=== PATIENT | female | born 1950 | race Caucasian/White ===

== ENCOUNTER 2016-11-17 10:29 | Inpatient (IN) | payer OTHER ==
[~2016-11-17] VITALS: Ht 154.9 cm; Wt 72.8 kg
[2016-11-17 10:40] VITALS: Ht 154.9 cm; Wt 72.8 kg
[2016-11-17] MEDS ORDERED: LIDOCAINE HCL 2% VISC SOLN 20 ML UDC PO STA (11:16)
[2016-11-17] MEDS ORDERED: ALUMINUM/MAGNESIUM SUSP 30 ML UDC PO STA (11:16)
--- NOTE | 2016-11-17 11:23 | DIAGNOSTIC IMAGING REPORT ---
CHEST ONE VIEW PORTABLE CLINICAL HISTORY: Evaluate Fever/Sepsis cough COMPARISON STUDY: No previous studies for comparison. FINDINGS: The bones soft tissues and hemidiaphragms are normal. The cardiomediastinal silhouette is normal. The lungs are clear. The pulmonary vasculature is normal. IMPRESSION: Negative chest. Electronically signed by: Maurice Bo M.D. 11/17/2016 11:22 AM Dictated Date/Time: 11/17/2016 11:21 AM
[2016-11-17 11:30] LABS: BASO % 0.3 %; BASO ABS # 0.02 K/uL (0-0.2); COMPLETE YES; EOS % 0.4 %; HEMATOCRIT 40.6 % (37-47); IG% 0.3 %; LYMPH % 19.6 %; LYMPH ABS # 1.41 K/uL (1.2-3.4); MEAN CELL VOLUME 91.9 fL (80-100); MEAN CORPUSCULAR HEMOGLOBIN 30.5 pg (25-34); MEAN CORPUSCULAR HGB CONC 33.3 g/dl (32-36); MEAN PLATELET VOLUME 9.5 fL (7.4-10.4); MONO % 3.5 %; NEUT % 75.9 %; PLATELET COUNT 218 K/uL (130-400); RED BLOOD COUNT 4.42 M/uL (4.2-5.4); WHITE BLOOD COUNT 7.19 K/uL (4.8-10.8)
[2016-11-17 11:37] LABS: PROTHROMBIN TIME (PATIENT) 10.8 SECONDS (9.0-12.0)
[2016-11-17 11:54] LABS: ALT/SGPT 26 U/L (12-78); AST/SGOT 16 U/L (15-37); BLOOD UREA NITROGEN 14 mg/dl (7-18); BUN/CREATININE RATIO 17.1 (10-20); CALCIUM 8.8 mg/dl (8.5-10.1); CARBON DIOXIDE 28 mmol/L (21-32); CHLORIDE 103 mmol/L (98-107); CREATININE 0.82 mg/dl (0.60-1.20); GLUCOSE 110 mg/dl (70-99); POTASSIUM 3.6 mmol/L (3.5-5.1); SODIUM 141 mmol/L (136-145)
[2016-11-17] MEDS ORDERED: PRLSR20 PO (11:58)
[2016-11-17] MEDS ORDERED: DICL-201 PO (11:58)
[2016-11-17] MEDS ORDERED: FLUT0.15 PO (11:58)
[2016-11-17] MEDS ORDERED: HYZ/10015 PO (11:58)
[2016-11-17] MEDS ORDERED: ATEN25TA PO (11:58)
[2016-11-17 12:24] LABS: ALKALINE PHOSPHATASE 53 U/L (45-117); CKMB/CK RATIO 5.6 (0-3.0)
[2016-11-17] MEDS ORDERED: ASPIRIN 324 MG CHEW PO STA (12:27)
[2016-11-17] MEDS ORDERED: NITROGLYCERIN 0.4 MG SL PER TAB CHARGE SL STA (12:27)
[2016-11-17] MEDS ORDERED: NITROGLYCERIN OINT 2% 1GM PACKET EXT SCH (12:30)
[2016-11-17] MEDS ORDERED: NITROGLYCERIN OINT 2% 1GM PACKET ONE (12:51)
[2016-11-17] MEDS ORDERED: HEPARIN 25000 UNIT/500 ML D5W ONE (13:07)
[2016-11-17] MEDS ORDERED: HEPARIN SOD 5000 UNIT/0.5 ML CARP ONE (13:07)
[2016-11-17] MEDS ORDERED: OPTIRAY 320 IV PRN (13:30)
--- NOTE | 2016-11-17 13:44 | DIAGNOSTIC IMAGING REPORT ---
HEAD CT NONCONTRAST CT DOSE: HISTORY: Mental status change memory disturbance TECHNIQUE: Multiaxial CT images of the head were performed without the use of intravenous contrast. Comparison: None. Findings: The paranasal sinuses and mastoid air cells are clear. The calvarium and skull base are intact. The ventricles and sulci are within normal limits. There is no mass, hematoma, midline shift, or acute infarct. Impression: No acute intracranial abnormality. Electronically signed by: Maurice oB M.D. 11/17/2016 1:42 PM Dictated Date/Time: 11/17/2016 1:42 PM
--- NOTE | 2016-11-17 13:49 | DIAGNOSTIC IMAGING REPORT ---
CT chest angiogram HISTORY:. Chest pain. Elevated troponin. FINDINGS: Thoracic aorta is normal in course and caliber. There is no evidence for aneurysm or dissection. Lungs are clear. Pulmonary vasculature enhances appropriately. IMPRESSION: Negative study Electronically signed by: Maurice Bo M.D. 11/17/2016 1:48 PM Dictated Date/Time: 11/17/2016 1:47 PM
[2016-11-17] MEDS ORDERED: ONDANSETRON INJ 2 MG/ML 2 ML VIAL IV PRN (14:00)
[2016-11-17] MEDS ORDERED: NITROGLYCERIN 0.4 MG SL PER TAB CHARGE SL PRN (14:00)
--- NOTE | 2016-11-17 14:06 | EMERGENCY ROOM VISIT NOTE ---
History Report prepared by Nasir: Nahid Osman Under the Supervision of: Dr. Reynaldo Damon D.O. First contact with patient: 10:40 Chief Complaint: CHEST PAIN Stated Complaint: CHEST PAINS Nursing Triage Summary: Patient c/o mid chest pain that started around 0515 this am and radiated into her left and right arms. Patient describes it as a burning sensation, denies any shortness of breath or diaphoresis. Patient also denies any nausea. Patient denies cardiac history. 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 She describes her pain as "pressure" and notes it rates down to her left arm and left elbow. She notes her pain has been somewhat better since being in the ER. She took some antacid and omeprazole this morning with minor relief of her symptoms. She thinks this is an acid attack though it feels different, and she is worried about a heart attack. The patient denies having any fever, chills, diaphoresis, or shortness of breath. She notes having a history of hypertension , and did take her blood pressure medication this morning. 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 A total of 10 systems reviewed and were otherwise negative. Past Medical & Surgical Medical Problems: (1) Chest pain (2) History of gastroesophageal reflux (GERD) (3) History of hypertension (4) Hypertensive urgency Family History Hypertension Social History Smoking Status: Never Smoker Current/Historical Medications Scheduled Atenolol (Tenormin), 25 MG PO HS Diclofenac (Voltaren), 75 MG PO HS Fluticasone Propionate (Nasal) (Flonase Allergy Relief), 1-2 SPRAYS PO DAILY Hctz/Losartan (Hyzaar 25MG/100MG), 1 TAB PO QAM Omeprazole (Prilosec), 20 MG PO DAILY Allergies Coded Allergies: Lisinopril (Verified Adverse Reaction, Intermediate, cough, 11/17/16) Physical Exam Vital Signs Date Time Temp Pulse Resp B/P Pulse Ox O2 Delivery O2 Flow Rate FiO2 11/17/16 13:57 74 16 155/89 96 Room Air 11/17/16 12:57 73 20 177/88 97 Room Air 11/17/16 11:04 99 Room Air 11/17/16 10:50 64 11/17/16 10:46 99 Room Air 11/17/16 10:40 99 Room Air 11/17/16 10:40 36.6 72 18 201/109 100 Room Air Physical Exam CONSTITUTIONAL/VITAL SIGNS: Reviewed / noted above. GENERAL: Non-toxic in appearance. INTEGUMENTARY: Warm, dry, and [place]. HEAD: Normocephalic. EYES: without scleral icterus or trauma. ENT/OROPHARYNX: clear and moist. LYMPHADENOPATHY/NECK: Is supple without lymphadenopathy or meningismus. RESPIRATORY: Lungs clear and equal. CARDIOVASCULAR: Regular rate and rhythm. GI/ABDOMEN: Soft and nontender. No organomegaly or pulsatile mass. No rebound or guarding. Normal bowel sounds. EXTREMITIES: Warm and well perfused. BACK: No CVA tenderness. NEUROLOGICAL: Intact without focal deficits. PSYCHIATRIC: normal affect. MUSCULOSKELETAL: Normally developed with good muscle tone. Medical Decision & Procedures ER Provider Diagnostic Interpretation: X ray results and stated below per my interpretation and radiology interpretation. CHEST ONE VIEW PORTABLE FINDINGS: The bones soft tissues and hemidiaphragms are normal. The cardiomediastinal silhouette is normal. The lungs are clear. The pulmonary vasculature is normal. IMPRESSION: Negative chest. Electronically signed by: Maurice Bo M.D. 11/17/2016 11:22 AM Dictated Date/Time: 11/17/2016 11:21 AM Laboratory Results 11/17/16 11:15 Red Blood Count 4.42, Mean Corpuscular Volume 91.9, Mean Corpuscular Hemoglobin 30.5, Mean Corpuscular Hemoglobin Concent 33.3, Mean Platelet Volume 9.5, Neutrophils (%) (Auto) 75.9, Lymphocytes (%) (Auto) 19.6, Monocytes (%) (Auto) 3.5, Eosinophils (%) (Auto) 0.4, Basophils (%) (Auto) 0.3, Neutrophils # (Auto) 5.46, Lymphocytes # (Auto) 1.41, Monocytes # (Auto) 0.25, Eosinophils # (Auto) 0.03, Basophils # (Auto) 0.02 2/5/17 11:15 Test 11/17/16 11:15 White Blood Count 7.19 K/uL (4.8-10.8) Red Blood Count 4.42 M/uL (4.2-5.4) Hemoglobin 13.5 g/dL (12.0-16.0) Hematocrit 40.6 % (37-47) Mean Corpuscular Volume 91.9 fL (80-100) Mean Corpuscular Hemoglobin 30.5 pg (25-34) Mean Corpuscular Hemoglobin Concent 33.3 g/dl (32-36) Platelet Count 218 K/uL (130-400) Mean Platelet Volume 9.5 fL (7.4-10.4) Neutrophils (%) (Auto) 75.9 % Lymphocytes (%) (Auto) 19.6 % Monocytes (%) (Auto) 3.5 % Eosinophils (%) (Auto) 0.4 % Basophils (%) (Auto) 0.3 % Neutrophils # (Auto) 5.46 K/uL (1.4-6.5) Lymphocytes # (Auto) 1.41 K/uL (1.2-3.4) Monocytes # (Auto) 0.25 K/uL (0.11-0.59) Eosinophils # (Auto) 0.03 K/uL (0-0.5) Basophils # (Auto) 0.02 K/uL (0-0.2) RDW Standard Deviation 44.0 fL (36.4-46.3) RDW Coefficient of Variation 13.0 % (11.5-14.5) Immature Granulocyte % (Auto) 0.3 % Immature Granulocyte # (Auto) 0.02 K/uL (0.00-0.02) Prothrombin Time 10.8 SECONDS (9.0-12.0) Prothromb Time International Ratio 1.0 (0.9-1.1) Activated Partial Thromboplast Time 25.2 SECONDS (21.0-31.0) Partial Thromboplastin Ratio 1.0 Anion Gap 10.0 mmol/L (3-11) Est Creatinine Clear Calc Drug Dose 59.1 ml/min Estimated GFR () 87.0 Estimated GFR (Non- 75.1 BUN/Creatinine Ratio 17.1 (10-20) Calcium Level 8.8 mg/dl (8.5-10.1) Total Bilirubin 0.3 mg/dl (0.2-1) Direct Bilirubin < 0.1 mg/dl (0-0.2) Aspartate Amino Transf (AST/SGOT) 16 U/L (15-37) Alanine Aminotransferase (ALT/SGPT) 26 U/L (12-78) Alkaline Phosphatase 53 U/L (45-117) Total Creatine Kinase 134 U/L (26-192) Creatine Kinase MB 7.5 ng/ml (0.5-3.6) Creatine Kinase MB Ratio 5.6 (0-3.0) Troponin I 0.329 ng/ml (0-0.045) Total Protein 7.4 gm/dl (6.4-8.2) Albumin 3.8 gm/dl (3.4-5.0) Lipase 265 U/L (73-393) Laboratory results as stated above per my review. Medications Administered Medications (Trade) Dose Ordered Sig/Alexander Route Start Time Stop Time Status Last Admin Dose Admin Al Hydroxide/Mg Hydroxide (Maalox Susp) 30 ml NOW STAT PO 11/17/16 11:16 11/17/16 11:17 DC 11/17/16 11:33 30 ML Lidocaine HCl (Viscous Lidocaine 2% Soln) 10 ml NOW STAT PO 11/17/16 11:16 11/17/16 11:17 DC 11/17/16 11:32 10 ML Aspirin (Aspirin Chew) 324 mg NOW STAT PO 11/17/16 12:27 11/17/16 12:31 DC 11/17/16 13:00 324 MG Nitroglycerin (Nitroglycerin 2% Oint) 1 inch Q6H EXT 11/17/16 12:30 12/17/16 12:29 11/17/16 12:30 1 INCH Heparin Sodium/ Dextrose (Heparin 25,000 Unit/500ml D5W) 25,000 unit STK-MED ONCE .ROUTE 11/17/16 13:07 11/17/16 13:09 DC 11/17/16 13:52 25,000 UNIT Heparin Sodium (Porcine) (Heparin Sq 5000 Unit/0.5ml) 5,000 unit STK-MED ONCE .ROUTE 11/17/16 13:07 11/17/16 13:09 DC 11/17/16 13:51 5,000 UNIT ECG Indication: chest pain Rate (beats per minute): 66 Rhythm: normal sinus Findings: no acute ischemic change, no ectopy ED Course 1116: Ordered Lidocaine HCl 10 ml PO, and Maalox Susp 30 ml PO. 1220: Previous medical records were reviewed. The patient was evaluated in room B11B. A complete history and physical examination was performed. 1227: Ordered Nitroglycerin 0.4 mg SL, Heparin Sodium/Dextrose 1 ea N/A, and Aspirin 324 mg PO. 1230: Ordered Nitroglycerin 1 inch EXT. 1238: Discussed the patient's case with Dr. Carpenter. The patient will be evaluated for further treatment and disposition. 1250: Discussed the patient's case with Dr. Burrell. He recommended ordering an echocardiogram. Medical Decision Differential includes viral illness, influenza, streptococcal pharyngitis, meningitis, pneumonia, sinusitis, UTI, pyelonephritis, otitis media. This is a 66-year-old female who presents to the ED with a chief complaint of chest discomfort. The patient reports having onset of chest discomfort that she describes as a pressure burning with an onset around 5:30 this morning. She states that it went to her left arm to the level of the elbow. The patient denies any shortness of breath or cough. Denies any other significant symptoms. There is no significant family history of cardiac disease. She does not have high cholesterol. She is a nonsmoker. Initial vital signs reveal hypertension. This improved some during her stay. The patient's EKG shows a normal sinus rhythm at a rate of 66 without acute injury. Chest x-ray did not show any acute disease. Complete metabolic panel was unremarkable. Troponin slightly elevated. The patient was told the results of the test. She'll be seen by the hospitalist service. While waiting to be seen, the patient developed amnesia with regards to why she was here. She is otherwise neurologically intact without deficit. Her blood pressure was down to 177 systolic and then 160 systolic. The symptoms started about 10 minutes after getting Nitropaste to the anterior chest. A CT scan of the head without contrast did not show any abnormality. CT scan of the chest to rule out dissection was also treated. The patient was treated with IV heparin as well as by mouth aspirin. She was also given Nitropaste. She'll be seen by the hospitalist service. Consults Time Called: 1238 Consulting Physician: Dr. Carpenter Returned Call: [phone] Discussed the patient's case with Dr. Carpenter. The patient will be evaluated for further treatment and disposition. Additional Consults: Time Called: 1245 Consulted Physician: Dr. Burrell, Cardiology Returned Call: 1250 Additional Comments: Discussed the patient's case with Dr. Burrell. He recommended ordering an echocardiogram. Impression Primary Impression: NSTEMI (non-ST elevated myocardial infarction) Additional Impression: Hypertensive urgency Scribe Attestation The scribe's documentation has been prepared under my direction and personally reviewed by me in its entirety. I confirm that the note above accurately reflects all work, treatment, procedures, and medical decision making performed by me. Departure Information Dispostion Being Evaluated By Hospitalist Referrals Yeny Garcia M.D. (PCP) Patient Instructions My [facility] Problem Qualifiers
[2016-11-17] MEDS ORDERED: IV FLUIDS COMPLETED PRN (14:45)
[2016-11-17 15:11] VITALS: BP 155/85; PULSE 67; TEMP 36.8; O2SAT 97; BMI 30.1
--- NOTE | 2016-11-17 15:14 | HISTORY & PHYSICAL EXAMINATION ---
DATE OF ADMISSION: 11/17/2016 PRIMARY CARE PHYSICIAN: Dr. Garcia CHIEF COMPLAINT: Waxing and waning chest pain beginning at around 6 hours prior to coming to the hospital. HISTORY OF PRESENT COMPLAINT: She is a 66-year-old white female with significant past medical history including hypertension, esophageal reflux, hyperlipidemia, and also generalized osteoarthritis, apparently was brought into the Emergency Room at around 10:40 this morning with complaints of waxing and waning chest pain, 6 hours before coming to the Emergency Room. The initial history was taken by the ER physician. At that time, the patient complained to have pressure in the center of the chest and sometimes pain has been going down to the left arm and left elbow. She was feeling a little better in the Emergency Room and she was worried about having a heart attack as well. She was noted to have a very high blood pressure of systolic of more than 200 and diastolic 109. At that point, she was given nitro paste to control the blood pressure and chest pain. Following that, the patient had an episode of confusion and during my time of taking history, she was not able to give any account of her problem. She told me that she cannot remember anything and she was asking why she is here, what is happening with her, these kind of questions, but she was not in any distress. She underwent a CTA to rule out any dissection and or clot and also CT of the head which were unremarkable. Her EKG unremarkable. Troponin was slightly elevated to 0.33 and her blood pressure came down to 150 range, but given her chest pain episode and also an episode of confusion and high blood pressure, she was admitted to the telemetry unit for continuation of medical care. PAST MEDICAL HISTORY: Significant for hypertension, hyperlipidemia, esophageal reflux, osteoarthritis, and history of impaired glucose tolerance. PAST SURGICAL HISTORY: Hysterectomy in 1998 and she did have upper and lower endoscopies. FAMILY HISTORY: She is . Her brother has prostate cancer and father had prostate cancer and mother had pancreatic cancer. SOCIAL HISTORY: She is . She lives with her . She does not smoke and does not drink and she has been reasonably ambulant. ALLERGIES: LISINOPRIL. MEDICATIONS: She has been on diclofenac 75 mg at night, atenolol 25 mg at night, Flonase nasal spray 2 sprays in each nostril as directed, Hyzaar 25 mg daily, omeprazole 20 mg daily. REVIEW OF SYSTEMS: CENTRAL NERVOUS SYSTEM: No headache, no blurred vision, no numbness or tingling in the extremities. RESPIRATORY: No shortness of breath, no cough or phlegm. CARDIOVASCULAR: Did have some central chest pain with radiation to left arm and elbow. No palpitation. GASTROINTESTINAL: No abdominal pain, distention, nausea, vomiting. GENITOURINARY: No problem with urine and/or bowel habit. MUSCULOSKELETAL: No acute arthritis. GENERAL: No rash and she does not have any complaint with vision, ear problem or nose problem. PHYSICAL EXAMINATION: GENERAL: On examination in the Emergency Room, as mentioned in history of present complaint, she could not remember why was she in the Emergency Room, but she was not having any acute distress during my examination. VITAL SIGNS: Temperature 36.6, pulse of 73, blood pressure 177/88, saturation 97% on room air. HEENT: Unremarkable. NECK: Supple. No JVD, no bruit. CHEST: Clear to auscultate bilaterally. HEART: S1, S2 regular, no murmur. ABDOMEN: Soft, benign, nontender, no organomegaly. Bowel sounds present. EXTREMITIES: Negative for any Edema. MUSCULOSKELETAL SYSTEM: Did not show any acute arthritis involving any joint. CENTRAL NERVOUS SYSTEM: She was alert, awake. She was not oriented but no focal sensory and/or motor deficit appreciated. LABORATORY DATA: Noted today white count was 7.19, H\T\H 13.5/40.6 and platelet was 218. Sodium 141, potassium 3.6, chloride 103, carbon dioxide 28, BUN 14, creatinine 0.82, random glucose 110. LFTs unremarkable. CK was 134, MB 7.5. Troponin 0.329. Lipase of 265. PT/INR unremarkable. IMAGING DATA: Chest x-ray negative. CT of the head negative. CTA still pending. EKG was in sinus rhythm with sinus arrhythmia, partial right Bundle Branch block but no acute ST-T wave changes. Compared with EKG in the [facility], no significant change noted. IMPRESSION AND PLAN: 1. Hypertensive urgency with metabolic encephalopathy. The patient will be admitted to telemetry unit and she will be observed. Initial CAT scan negative. She does not have any neuro symptoms. We will maintain the blood pressure around systolic 150. 2. Chest pain, could be secondary to hypertensive urgency. She has a little bit of elevation of troponin. Will do serial cardiac enzymes, echo was done, no significant valvular and/or left ventricular disease. Cardiology consultation. She will be put on heparin, aspirin and beta mónica. 3. Esophageal reflux. Continue with current medication. 4. Hyperlipidemia, has not been taking any medications. Will check a lipid level and then put her on statin on discharge. 5. Osteoarthritis has been on diclofenac, will hold this medicine while in the hospital. 6. Deep venous thrombosis prophylaxis - heparin. 7. Gastrointestinal prophylaxis with proton pump inhibitor. 8. Code status - she will be a full code. In my clinical judgment, the beneficiary meets criteria as per CMS for 2-midnight stay in the hospital. MTDD
--- NOTE | 2016-11-17 15:43 | CARDIOLOGY CONSULTATION ---
DATE OF CONSULTATION: 11/17/2016 CONSULTATION REQUESTED BY: Dr. Damon. REASON FOR CONSULTATION: Chest discomfort with elevated troponin. HISTORY OF PRESENT ILLNESS: Ms. Ye is a very pleasant 66-year-old woman who was came into the Emergency Department today with her for complaint of chest discomfort. Currently, the patient is very confused and does not remember anything that is going on. 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 When shortly after she was told that she might have a heart problem, she became significantly confused and was repeating herself over and over again. So, the majority of her history was obtained through discussion with the patient's as well as the ER staff and review of medical records. According to her , the patient woke up this morning and had some which she described as indigestion. She described it as a chest discomfort that radiated up through her chest and over her left chest and down into her left shoulder and down her left arm. She did not complain of shortness of breath or diaphoresis, but just did not feel well. She took her morning medications as she usually does and went to [facility]. 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 After the service, she told her that her chest discomfort persisted. At that time, she took her Hyzaar because she will not take a water pill before amish. At that time, her brought her into the Emergency Department. Upon presentation, she was still complaining of some slight discomfort, which was not relieved with GI cocktail. She was found to have a blood pressure of 201/109 and initial laboratory studies came back showing a minimal troponin elevation of 0.3. Her EKG was unremarkable. Cardiology was consulted. An urgent echocardiogram was done at the bedside, which showed normal LV systolic function without regional wall motion abnormalities. PAST SURGICAL HISTORY: 1. Colonoscopy. 2. Upper endoscopy. MEDICAL ILLNESSES: 1. Short segment Pimentel's esophagitis. 2. Hypertension. 3. GERD. 4. Osteoarthritis. 5. History of psychogenic amnesia in 2005. FAMILY HISTORY: Noncontributory. SOCIAL HISTORY: No alcohol, tobacco or recreational drug use. She is . She lives at home with her . 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 ALLERGIES: 1. LISINOPRIL CAUSES A COUGH. 2. ULTRAM. MEDICATIONS AN OUTPATIENT: 1. Hyzaar 100/25 mg daily. 2. Atenolol 25 mg daily. 3. Prilosec 20 mg daily. 4. Trazodone at bedtime. 5. Voltaren daily. 6. Multivitamin daily. 7. Fish oil 1000 mg b.i.d. PHYSICAL EXAMINATION: VITALS: Temperature 36.6, pulse 72, respiratory rate 12, and blood pressure 155/89. GENERAL: Awake, alert, and oriented to self, but not place or time. Confused, repeating her questions. HEENT: Normocephalic and atraumatic. Pupils equal, round, and reactive to light and accommodation. Extraocular muscles intact. Anicteric sclerae. Moist mucous membranes. NECK: No JVD and no bruit. CARDIOVASCULAR: Regular. No S4. Normal S1 and S2. No S3. No murmurs, rubs or gallops. PULMONARY: Clear to auscultation bilaterally. No rales, rhonchi, or wheezing. ABDOMEN: Bowel sounds x4. Soft. No rebound, guarding, or tenderness. No organomegaly. EXTREMITIES: No clubbing, cyanosis or edema. +2 pedal pulses bilaterally. SKIN: Warm and dry. Preliminary review of the head CT showed no acute intracranial abnormalities. CT of the chest showed no dissection. A 12-lead EKG showed normal sinus rhythm, normal axis, and normal intervals. No signs of active ischemia. LABORATORY STUDIES OF SIGNIFICANCE: CPK of 134 and troponin of 0.33. Sodium 141, potassium 3.6, BUN 14, and creatinine 0.82. INR of 1. White count 7.2, hemoglobin 13.5, and platelet count of 218. IMPRESSION: 1. Hypertensive urgency. 2. Questionable psychogenic amnesia versus transient global amnesia. 3. Minimal troponin elevation. RECOMMENDATIONS: It was my pleasure to see Ms. Ye in consultation today. Given her presentation, I believe the entirety of her symptoms could be explained by hypertensive urgency, especially in light of a normal EKG and no wall motion abnormalities on echocardiogram. So at this time, to be on the safe side, we will start heparin given the fact that there is no bleed in the brain and her troponin levels will be followed. Her blood pressure is significantly improving and when she settled down, I recommend trying to maintain a blood pressure of less than 160 and amlodipine to be given as needed to further lower the pressure. Otherwise, I would recommend a neurology consult and we will continue to follow her during her hospital stay. The patient's was updated on the findings of these studies.
[2016-11-17 16:00] VITALS: BP 155/83; PULSE 67; O2SAT 94; O2SAT 99
[2016-11-17] MEDS ORDERED: INFLUENZA ADMINISTRATION CHARGE ONE (16:30)
[2016-11-17] MEDS ORDERED: PNEUMOCOCCAL ADMINISTRATION CHARGE ONE (16:30)
[2016-11-17] MEDS ORDERED: PNEUMOCOCCAL POLYSACCHARIDES 25 MCG/0.5 ML VIAL/SYR IM. ONE (16:30)
[2016-11-17] MEDS ORDERED: INFLUENZA VIRUS QUAD VACCINE 0.5 ML SYR IM. ONE (16:30)
[2016-11-17 18:27] VITALS: BP 129/77; PULSE 75; TEMP 36.7; O2SAT 95
[2016-11-17] MEDS: NSS + 20MEQ KCL 1000ML 1,000 ML IV SCH (19:00)
[2016-11-17] MEDS: ACETAMINOPHEN 325 MG TAB PO PRN (19:32)
[2016-11-17] MEDS ORDERED: HEPARIN IV LOW DOSE NO BOLUS STA (21:40)
[2016-11-17] MEDS ORDERED: HEPARIN IV BOLUS 4,000 UNIT in SYRINGE 0 ML IV ONE (22:15)
[2016-11-18] VITALS (7 sets, daily range): BP systolic 119–160; BP diastolic 69–92; PULSE 62–68; TEMP 36.6–36.9; O2SAT 93–97
[2016-11-18 03:00] LABS: CKMB/CK RATIO 6.9 (0-3.0)
[2016-11-18 05:16] LABS: PARTIAL THROMBOPLASTIN RATIO 1.3
[2016-11-18] MEDS: NSS + 20MEQ KCL 1000ML 1,000 ML IV SCH ×2 (06:06→20:06)
[2016-11-18 06:37] LABS: HEMATOCRIT 38.9 % (37-47); MEAN CELL VOLUME 90.9 fL (80-100); MEAN CORPUSCULAR HEMOGLOBIN 30.1 pg (25-34); MEAN CORPUSCULAR HGB CONC 33.2 g/dl (32-36); MEAN PLATELET VOLUME 9.6 fL (7.4-10.4); PLATELET COUNT 211 K/uL (130-400); RED BLOOD COUNT 4.28 M/uL (4.2-5.4); WHITE BLOOD COUNT 5.62 K/uL (4.8-10.8)
[2016-11-18] MEDS ORDERED: HEPARIN IV BOLUS 4,000 UNIT in SYRINGE 0 ML IV ONE ×2 (06:45→13:30)
[2016-11-18 07:05] LABS: BUN/CREATININE RATIO 12.5 (10-20); CALCIUM 8.5 mg/dl (8.5-10.1); CREATININE 0.77 mg/dl (0.60-1.20); MAGNESIUM 2.2 mg/dl (1.8-2.4)
[2016-11-18 07:16] LABS: CHOLESTEROL/HDL RATIO 3.1; CKMB/CK RATIO 6.2 (0-3.0)
[2016-11-18] MEDS: FLUTICASONE PROPIONATE NA SPR 16 GM BTL SCH (08:07)
[2016-11-18] MEDS: PANTOprazole SOD 40 MG TAB PO SCH (08:08)
[2016-11-18] MEDS: ASPIRIN 81 MG ECTAB PO SCH (08:08)
[2016-11-18] MEDS: LOSARTAN/HCTZ 50-12.5 EA TAB PO SCH (08:08)
--- NOTE | 2016-11-18 08:45 | ECHOCARDIOGRAM REPORT ---
*NOTICE TO RECEIVING [facility] [employer] This information is strictly Confidential and protected under [place] law. [place] law prohibits you from making any further disclosure of this information unless further disclosure is expressly permitted by the written consent of the person to whom it pertains or is authorized by law. A general authorization for the release of medical or other information is not sufficient for this purpose. Hospital accepts no responsibility if the information is made available to any other person, INCLUDING THE PATIENT. Interpretation Summary * Conclusions -- * Normal LV chamber size and wall thickness. * Normal LV systolic function, EF 60-65%. * No segmental left ventricular wall motion abnormalities are noted. * Grade I diastolic dysfunction. * No significant valvular pathology. Procedure Details * A complete two-dimensional transthoracic echocardiogram was performed (2D, M-mode, Doppler and color flow Doppler). * A contrast injection of Definity was performed to improve assessment of LV function. * Contrast was injected into an intravenous site in the right arm. * One vial of Definity ultrasound contrast was diluted in normal saline to a total volume of 10 ml. A total of '2' ml of solution was administered during imaging. * Lot # [id number] of Definity utilized for procedure. * Expiration date OCT 30. * The attending nurse who injected the contrast agent was YASMANI TABOR ED, RN. Left Ventricle * The left ventricle is normal in size. * There is normal left ventricular wall thickness. * Left ventricular systolic function is normal. * No segmental left ventricular wall motion abnormalities are noted. * Ejection Fraction = 60-65%. * The left ventricular wall motion is normal. Right Ventricle * The right ventricular cavity size is normal (basal dimension <4.2 cm in right ventricular apical 4-chamber view). * The right ventricular systolic function is normal as assessed by tricuspid annular plane systolic excursion (TAPSE) (normal >1.5 cm). Atria * The left atrial size is normal. * Right atrial size is normal. * No ASD detected; PFO is not assessed. Mitral Valve * The mitral valve is normal in structure and function. Tricuspid Valve * The tricuspid valve is normal in structure and function. Aortic Valve * The aortic valve is normal in structure and function. Pulmonic Valve * The pulmonary valve is not well seen, but the Doppler examination is normal without significant regurgitation or stenosis. Great Vessels * The aortic root is normal size. Pericardium/Pleural * There is no pericardial effusion. Left Ventricular Diastolic Function * Grade I diastolic dysfunction, (abnormal relaxation pattern). MMode 2D Measurements and Calculations IVSd 0.98 cm IVSs 1.7 cm LVIDd 4.6 cm LVIDs 3.0 cm LVPWd 0.91 cm LVPWs 1.1 cm IVS/LVPW 1.1 FS 34.4 % EDV(Teich) 96.9 ml ESV(Teich) 35.4 ml EF(Teich) 63.5 % EDV(cubed) 96.8 ml ESV(cubed) 27.4 ml EF(cubed) 71.7 % % IVS thick 74.9 % % LVPW thick 21.5 % LV mass(C)d 145.8 grams LV mass(C)dI 87.4 grams/m\S\2 LV mass(C)s 141.9 grams LV mass(C)sI 85.1 grams/m\S\2 SV(Teich) 61.5 ml SI(Teich) 36.9 ml/m\S\2 SV(cubed) 69.5 ml SI(cubed) 41.6 ml/m\S\2 Ao root diam 3.4 cm Ao root area 9.0 cm\S\2 LA dimension 3.1 cm LA/Ao 0.92 LVOT diam 2.0 cm LVOT area 3.1 cm\S\2 LVAd ap4 28.9 cm\S\2 LVLd ap4 7.4 cm EDV(MOD-sp4) 93.4 ml EDV(sp4-el) 95.8 ml LVAs ap4 17.2 cm\S\2 LVLs ap4 6.2 cm ESV(MOD-sp4) 39.3 ml ESV(sp4-el) 40.7 ml EF(MOD-sp4) 58.0 % EF(sp4-el) 57.6 % LVAd ap2 26.8 cm\S\2 LVLd ap2 6.9 cm EDV(MOD-sp2) 85.7 ml EDV(sp2-el) 88.5 ml LVAs ap2 12.8 cm\S\2 LVLs ap2 5.0 cm ESV(MOD-sp2) 28.9 ml ESV(sp2-el) 27.8 ml EF(MOD-sp2) 66.3 % EF(sp2-el) 68.5 % LVLd %diff -7.13 % EDV(MOD-bp) 92.3 ml LVLs %diff -23.21 % ESV(MOD-bp) 36.9 ml EF(MOD-bp) 60.1 % SV(MOD-sp4) 54.2 ml SI(MOD-sp4) 32.5 ml/m\S\2 SV(MOD-sp2) 56.8 ml SI(MOD-sp2) 34.1 ml/m\S\2 SV(MOD-bp) 55.4 ml SI(MOD-bp) 33.2 ml/m\S\2 SV(sp4-el) 55.1 ml SI(sp4-el) 33.1 ml/m\S\2 SV(sp2-el) 60.7 ml SI(sp2-el) 36.4 ml/m\S\2 Doppler Measurements and Calculations MV E max tricia 76.2 cm/sec MV A max tricia 90.2 cm/sec MV E/A 0.84 MV P1/2t max tricia 85.3 cm/sec MV P1/2t 92.8 msec MVA(P1/2t) 2.4 cm\S\2 MV dec slope 269.2 cm/sec\S\2 MV dec time 0.24 sec Ao V2 max 143.7 cm/sec Ao max PG 8.3 mmHg Ao max PG (full) 2.0 mmHg KEVAN(V,A) 2.7 cm\S\2 KEVAN(V,D) 2.7 cm\S\2 LV V1 max PG 6.3 mmHg LV V1 max 125.1 cm/sec PA V2 max 100.4 cm/sec PA max PG 4.0 mmHg TR max tricia 286.4 cm/sec
--- NOTE | 2016-11-18 10:24 | Clinical Documentation Query ---
Dr. JAVIER [facility] : CLINICAL DOCUMENTATION QUERY Patient is a 66 year old female who presented with waxing and waning chest pain/pressure, radiating to left arm. Serum troponin 0.329 ng/ml on admission, rising to 6.22 ng/ml with elevated CK, CK-MB, and CK-MB ratios. She is being treated with ASA, IV Heparin, atenolol, and nitrates. As appropriate, consider documentation as below as this In your clinical opinion is this patient being managed for: ( + ) Type II NSTEMI, POA, secondary to hypertensive urgency ( ) Other explanation of clinical findings (Please Explain) ( ) Unable to determine (Please Define) ( ) Need to Discuss ( ) Not Agree The medical record reflects the following clinical findings, treatment, and risk factors. Clinical Indicators: As above Treatment: Nitrates, ASA, IV heparin, cardiology consultation. Risk Factors: Age, hypertensive urgency The task force included representatives of the [place] [employer], the [place] [employer], the Society of Cardiology, the World Health Organization, and the World Heart Federation. This membership was designed to broaden worldwide representation; the last revision of the [place] definition, in 1999, was criticized because it came from a group that represented only the ACC and the ESC, said Dr. Vasques, a [place]apanese professor and cardiology at [employer] [facility]. The five types of acute [place] compose five separate situations that produce myocardial ischemia and myocardial-cell : 1. A primary coronary event, such as plaque rupture or dissection. 2. A problem of oxygen supply and demand, such as coronary spasm, coronary embolism, arrhythmia, anemia, or hypo/hypertension. 3. Sudden cardiac that includes signs and symptoms of myocardial ischemia, such as ECG changes, but which produces before a blood sample can be obtained or when occurs during the lag period before serum markers appear in the blood. 4. Percutaneous coronary intervention. 5. Coronary artery bypass grafting. Please clarify and document your clinical opinion in the progress notes and discharge summary. Terms such as "probable", "suspected", "likely", "questionable", "possible", or "still to be ruled out" are acceptable. IF IN AGREEMENT, YOU MUST DOCUMENT ABOVE DIAGNOSTIC STATEMENT IN DAILY PROGRESS NOTES AND DISCHARGE SUMMARY. This document is not part of the patient's record. Thank You, Nahid Dacosta, VANE [phone]
--- NOTE | 2016-11-18 10:37 | Cardiology Follow-Up ---
Subjective Subjective Date of Service: Nov 18, 2016. Pt evaluation today including: conversation w/ patient, physical exam, chart review, lab review, review of studies, review of inpatient medication list Additional Details: Pt seen and examined, back to baseline mentally now. Still does not remember the events of yesterday. Does not remember chest discomfort. Currently without complaint. Denies cp, sob, palpitations, lightheadedness or dizziness. Tele reviewed: sinus rhythm without arrhythmia or significant ectopy. Problem List Medical Problems: (1) NSTEMI (non-ST elevated myocardial infarction) Status: Acute Review of Systems Respiratory: No cough, No dyspnea at rest, No dyspnea on exertion, No hemoptysis, No problem reported, No see HPI, No shortness of breath, No sputum, No wheezing Cardiac: + chest pain, No PND, No claudication, No edema, No orthopnea, No palpitations, No problem reported, No see HPI Objective Vital Signs Last Vital Signs Documentation Date Time Temp Pulse Resp B/P Pulse Ox O2 Delivery O2 Flow Rate FiO2 11/18/16 07:34 36.6 67 16 134/83 93 Room Air Physical Exam: General Appearance: WD/WN, no apparent distress Eyes: bilateral eyes EOMI, bilateral eyes PERRL, bilateral eyes normal inspection ENT: normal ENT inspection, hearing grossly normal, pharynx normal Neck: supple, no adenopathy, thyroid normal, no JVD, no carotid bruits, trachea midline Respiratory/Chest: chest non-tender, lungs clear, normal breath sounds, no respiratory distress, no accessory muscle use Cardiovascular: regular rate, rhythm, no edema, no gallop, no JVD, no murmur Abdomen: normal bowel sounds, non tender, soft, no organomegaly, no pulsatile mass Extremities: normal range of motion, non-tender, normal inspection, no pedal edema, no calf tenderness 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 troponin elevation no other sign of active ischemia no wall motion abnormality on echo no ischemic EKG changes ?secondary to hypertensive urgency will proceed with cardiac cath on 11/19 to rule out ischemia as a cause patient agrees with plan 2. Hypertension controlled now unclear why significantly elevated on 11/17 will perform secondary work up plasma metanephrines renal artery ultrasound cont outpatient meds cont to monitor on tele
[2016-11-18 12:59] LABS: PARTIAL THROMBOPLASTIN RATIO 1.4
[2016-11-18] MEDS: HEPARIN 25,000 UNIT/500ML D5W 500 ML IV PRN ×2 (13:15→22:41)
[2016-11-18 14:49] LABS: CKMB/CK RATIO 4.9 (0-3.0)
--- NOTE | 2016-11-18 15:28 | DIAGNOSTIC IMAGING REPORT ---
DOPPLER ULTRASOUND OF THE RENAL ARTERIES CLINICAL HISTORY: Hypertension. COMPARISON STUDY: No previous studies for comparison. TECHNIQUE: Color and duplex Doppler sonography of the abdominal aorta and renal arteries was performed. FINDINGS: The right kidney measures 10.7 cm in maximal dimension and the left measures 11.4 cm. There is no hydronephrosis. Renal echogenicity, size and cortical thickness are normal. The peak systolic velocity within the abdominal aorta was 73 cm/s. The peak systolic velocity within the proximal right renal artery was 179 cm/s. The mid right renal artery was obscured by overlying bowel gas. The peak systolic velocity within the left renal artery was 76 cm/s. Segmental waveforms within each kidney were unremarkable. Both renal veins were patent. IMPRESSION: 1. Technically nondiagnostic evaluation for right renal artery stenosis given nonvisualization of the mid right renal artery. Mildly elevated velocity within the proximal right renal artery which does not meet criteria for renal artery stenosis by sonography. No downstream evidence of renal artery stenosis. 2. No evidence of left-sided renal artery stenosis. 3. No hydronephrosis. 4. Suspected fatty liver. Electronically signed by: Sotero Myers M.D. 11/18/2016 3:27 PM Dictated Date/Time: 11/18/2016 3:22 PM
[2016-11-18] MEDS: ACETAMINOPHEN 325 MG TAB PO PRN ×2 (15:58→23:24)
--- NOTE | 2016-11-18 16:27 | Progress Note ---
Internal Med Progress Note Date of Service: Nov 18, 2016. Provider Documentation: SUBJECTIVE: The patient was seen and examined Denies any chest pain,sob and or palpitation Still can't remember the symptoms before coming to hospital Has had similar episode of amnesia 2 years ago OBJECTIVE: Vital Signs-as noted below Exam: General-No distress Eyes-normal ENT-normal Neck-supple Lungs-clear to ausucltate bilaterally Heart-regular,no murmur Abdomen-Benign,no masses,bowel sound present Extremities-No edema Neuro-AAOx3 Lab data as noted below. ASSESSMENT & PLAN: Hypertensive urgency with metabolic encephalopathy. 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 Continue with current medication. Hyperlipidemia, has not been taking any medications. Will check a lipid level-Total Cholesterol 224 Osteoarthritis has been on diclofenac, will hold this medicine while in the hospital. Deep venous thrombosis prophylaxis - heparin. Gastrointestinal prophylaxis with proton pump inhibitor. Code status - she will be a full code. DVT PROPHYLAXIS [] DISPOSITION [] Vital Signs: Date Time Temp Pulse Resp B/P Pulse Ox O2 Delivery O2 Flow Rate FiO2 11/18/16 15:45 36.9 65 18 160/92 96 Room Air 11/18/16 11:30 36.6 67 16 143/90 96 Room Air 11/18/16 08:00 Room Air 11/18/16 07:34 36.6 67 16 134/83 93 Room Air 11/18/16 04:00 Room Air 11/18/16 04:00 36.7 62 18 131/76 95 Room Air 11/18/16 00:01 Room Air 11/18/16 00:00 36.7 68 16 119/69 94 Room Air 11/17/16 20:00 Room Air 11/17/16 18:27 36.7 75 16 129/77 95 Room Air Lab Results: Results Past 24 Hours Test 11/17/16 19:40 11/18/16 01:48 11/18/16 04:39 11/18/16 06:25 Range/Units Activated Partial Thromboplast Time 27.1 34.4 21.0-31.0 SECONDS Partial Thromboplastin Ratio 1.0 1.3 Total Creatine Kinase 437 437 373 26-192 U/L Creatine Kinase MB 34.9 30.1 23.3 0.5-3.6 ng/ml Creatine Kinase MB Ratio 8.0 6.9 6.2 0-3.0 Troponin I 5.840 6.220 5.580 0-0.045 ng/ml Sodium Level 145 136-145 mmol/L Potassium Level 4.0 3.5-5.1 mmol/L Chloride Level 108 98-107 mmol/L Carbon Dioxide Level 28 21-32 mmol/L Anion Gap 9.0 3-11 mmol/L Blood Urea Nitrogen 10 7-18 mg/dl Creatinine 0.77 0.60-1.20 mg/dl Est Creatinine Clear Calc Drug Dose 66.2 ml/min Estimated GFR () 93.9 Estimated GFR (Non- 81.0 BUN/Creatinine Ratio 12.5 10-20 Random Glucose 94 70-99 mg/dl Calcium Level 8.5 8.5-10.1 mg/dl Magnesium Level 2.2 1.8-2.4 mg/dl Triglycerides Level 136 0-150 mg/dl Cholesterol Level 214 0-200 mg/dl HDL Cholesterol 70 mg/dl LDL Cholesterol, Calculated 117 mg/dl VLDL Cholesterol, Calculated 27 mg/dl Cholesterol/HDL Ratio 3.1 Thyroid Stimulating Hormone (TSH) 2.460 0.300-4.500 uIu/ml Hepatitis C Antibody Screen NEG NEG Test 11/18/16 06:28 11/18/16 12:37 11/18/16 13:52 Range/Units White Blood Count 5.62 4.8-10.8 K/uL Red Blood Count 4.28 4.2-5.4 M/uL Hemoglobin 12.9 12.0-16.0 g/dL Hematocrit 38.9 37-47 % Mean Corpuscular Volume 90.9 80-100 fL Mean Corpuscular Hemoglobin 30.1 25-34 pg Mean Corpuscular Hemoglobin Concent 33.2 32-36 g/dl RDW Standard Deviation 43.5 36.4-46.3 fL RDW Coefficient of Variation 13.2 11.5-14.5 % Platelet Count 211 130-400 K/uL Mean Platelet Volume 9.6 7.4-10.4 fL Activated Partial Thromboplast Time 36.0 21.0-31.0 SECONDS Partial Thromboplastin Ratio 1.4 Total Creatine Kinase 313 26-192 U/L Creatine Kinase MB 15.2 0.5-3.6 ng/ml Creatine Kinase MB Ratio 4.9 0-3.0 Troponin I 4.250 0-0.045 ng/ml
--- NOTE | 2016-11-18 16:55 | Neurology Consultation ---
Neurology Consultation Date of Consultation: Nov 18, 2016. Attending Physician: Latisha Carpenter M.D. Primary Care Physician: Yeny Garcia M.D. Reason for Consultation: transient global amnesia History of Present Illness Source: patient Michael is a 66-year-old white female with significant past medical history including hypertension, esophageal reflux, hyperlipidemia, and also generalized osteoarthritis, apparently was brought into the Emergency Room at around 10:40 this morning with complaints of waxing and waning chest pain for 6 hours. She was worried she had a heart attack. Her blood pressure was elevated to 200/109. She was given nitro paste to control her blood pressure. 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 She did have a headache after the event. She had a similar episode in 2005 which was not as protracted. She also mentioned that she had a concussion in 1994. she states she has no history of seizures but does have a PMH of headaches. Past Medical/Surgical History Medical Problems: (1) NSTEMI (non-ST elevated myocardial infarction) Status: Acute Allergies Coded Allergies: Lisinopril (Verified Adverse Reaction, Intermediate, cough, 11/17/16) Current Inpatient Medications Current Inpatient Medications Medications (Trade) Dose Ordered Sig/Alexander Route Start Time Stop Time Status Last Admin Dose Admin Ioversol (Optiray 320) 125 ml UD PRN IV 11/17/16 13:30 11/21/16 13:29 Acetaminophen (Tylenol Tab) 650 mg Q4H PRN PO 11/17/16 14:00 12/17/16 13:59 11/18/16 15:58 650 MG Ondansetron HCl (Zofran Inj) 4 mg Q6H PRN IV 11/17/16 14:00 12/17/16 13:59 Nitroglycerin (Nitrostat Tab) 0.4 mg UD PRN SL 11/17/16 14:00 12/17/16 13:59 Aspirin (Ecotrin Tab) 81 mg QAM PO 11/18/16 09:00 12/18/16 08:59 11/18/16 08:08 81 MG Atenolol (Tenormin Tab) 25 mg HS PO 11/17/16 21:00 3/7/17 20:59 11/17/16 19:31 25 MG Fluticasone Propionate (Flonase Nasal Tie Siding) 2 sprays DAILY NA 11/18/16 09:00 12/18/16 08:59 11/18/16 08:07 2 SPRAYS HCTZ/Losartan Potassium (Hyzaar 50-12.5 Tab) 1 tab QAM PO 11/18/16 09:00 12/18/16 08:59 11/18/16 08:08 1 TAB Pantoprazole Sodium 40 mg 40 mg QAM PO 11/18/16 09:00 12/18/16 08:59 11/18/16 08:08 40 MG Potassium Chloride/Sodium Chloride (Nss + 20meq KCl 1000ml) 1,000 ml @ 75 mls/hr [id number] IV 11/17/16 16:00 12/17/16 15:59 11/18/16 06:06 75 MLS/HR Miscellaneous 1 ea 1 ea PRN PRN N/A 11/17/16 14:45 11/17/17 14:44 Heparin Sodium/ Dextrose (Heparin 25,000 Unit/500ml D5W) 500 ml @ 20 mls/hr Q24H PRN IV 11/17/16 22:15 12/17/16 22:14 11/18/16 13:15 20 MLS/HR Physical Exam Vital Signs (Past 24 Hrs): Date Time Temp Pulse Resp B/P Pulse Ox O2 Delivery O2 Flow Rate FiO2 11/18/16 15:45 36.9 65 18 160/92 96 Room Air 11/18/16 11:30 36.6 67 16 143/90 96 Room Air 11/18/16 08:00 Room Air 11/18/16 07:34 36.6 67 16 134/83 93 Room Air 11/18/16 04:00 Room Air 11/18/16 04:00 36.7 62 18 131/76 95 Room Air 11/18/16 00:01 Room Air 11/18/16 00:00 36.7 68 16 119/69 94 Room Air 11/17/16 20:00 Room Air 11/17/16 18:27 36.7 75 16 129/77 95 Room Air Physical Exam: Constitutional: appearance nourished, healthy and normal Ears, Nose, Mouth and Throat: mucous membranes moist, no injection and skin normal, eyes normal Cardiovascular: normal S-1 and S-2 and regular rate and rhythm Respiratory: clear to auscultation (CTA) and no rales, rhonchi or wheeze Musculoskeletal: no peripheral edema and good distal pulses Skin: no stigmata of neurocutaneous disease noted and normal and intact Eyes: extraocular muscles intact (EOMI) and pupils equal, round and reactive to light (PERRL) NEUROLOGIC EXAMINATION: Mental status: Alert and interactive, knows date president, she can close eyes, stick out tongue and point to the ceiling Oriented to full date and location Oriented to person Speech fluent with no evidence of aphasia Cranial Nerves smile, eye brow raise symmetric tongue midline Reflexes: Deep tendon reflexes were symmetrical and graded 2/5. Plantar responses were flexor. Sensory: no sensory deficits, with cool or vibration, GT proprioception Coordination: finger to nose without bi pass, no tremor Gait/Stance: sitting up in bed Motor: Negative for pronator drift of out stretched arms with eyes closed. Strength: Normal - 5/5 all extremities Laboratory Results Past 24 Hours: 11/18/16 06:28 11/18/16 06:25 Test 11/18/16 06:25 11/18/16 06:28 11/18/16 12:37 11/18/16 13:52 Anion Gap 9.0 mmol/L (3-11) Est Creatinine Clear Calc Drug Dose 66.2 ml/min Estimated GFR () 93.9 Estimated GFR (Non- 81.0 BUN/Creatinine Ratio 12.5 (10-20) Calcium Level 8.5 mg/dl (8.5-10.1) Magnesium Level 2.2 mg/dl (1.8-2.4) Triglycerides Level 136 mg/dl (0-150) Cholesterol Level 214 mg/dl (0-200) HDL Cholesterol 70 mg/dl LDL Cholesterol, Calculated 117 mg/dl VLDL Cholesterol, Calculated 27 mg/dl Cholesterol/HDL Ratio 3.1 Thyroid Stimulating Hormone (TSH) 2.460 uIu/ml (0.300-4.500) Hepatitis C Antibody Screen NEG (NEG) Red Blood Count 4.28 M/uL (4.2-5.4) Mean Corpuscular Volume 90.9 fL (80-100) Mean Corpuscular Hemoglobin 30.1 pg (25-34) Mean Corpuscular Hemoglobin Concent 33.2 g/dl (32-36) RDW Standard Deviation 43.5 fL (36.4-46.3) RDW Coefficient of Variation 13.2 % (11.5-14.5) Mean Platelet Volume 9.6 fL (7.4-10.4) Activated Partial Thromboplast Time 36.0 SECONDS (21.0-31.0) Partial Thromboplastin Ratio 1.4 Total Creatine Kinase 313 U/L (26-192) Creatine Kinase MB 15.2 ng/ml (0.5-3.6) Creatine Kinase MB Ratio 4.9 (0-3.0) Troponin I 4.250 ng/ml (0-0.045) Imaging ECHO : Normal LV chamber size and wall thickness. * Normal LV systolic function, EF 60-65%. * No segmental left ventricular wall motion abnormalities are noted. * Grade I diastolic dysfunction. * No significant valvular pathology. NO ASD CT head- negative imagines no acute findings CT dissection- negative no acute findings Impression 66 year old female transient global amnesia Plan 1. cardiac work up in progress 2. can not exclude a complex migraine syndrome 3. MRI brain with and without contrast 4. EEG -r/o seizure 5. MRA head and neck - r/o any vascular issues in head and neck 6. will continue to follow 7. 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 Needs a workup for a vascular event possiblly embolic , localized posteror circulation steonsies and seizure of partail type but doubt we wll find anything of note We will follow with you Will need some form of antiplatelet rx but will wait for cardiology to complete the workup first and go with their recommendations Discussed with Shelbi Garsia MD
[2016-11-18 20:05] LABS: PARTIAL THROMBOPLASTIN RATIO 1.9
[2016-11-18] MEDS ORDERED: DOCUSATE SODIUM 100 MG CAP PO ONE (21:07)
--- NOTE | 2016-11-18 21:09 | DIAGNOSTIC IMAGING REPORT ---
MR ANGIOGRAPHY OF THE [place] OF [place] NO CONTRAST CLINICAL HISTORY: Transient global amnesia. COMPARISON STUDY: None. A 3-D [id number] MR angiographic sequence of the [place] was performed. Both the source and projection images were reviewed. There is no evidence of major intracranial branch occlusion. There is no evidence of cranial stenosis. 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 This is not felt to be of clinical significance. IMPRESSION: No significant abnormalities identified. Electronically signed by: Rao Cancino M.D. 11/18/2016 9:08 PM Dictated Date/Time: 11/18/2016 9:05 PM
--- NOTE | 2016-11-18 21:37 | DIAGNOSTIC IMAGING REPORT ---
NECK MRA HISTORY: Transient global amnesia. Suspected vascular etiology TECHNIQUE: [id number] and gadolinium-enhanced MRA of the neck was performed both before and after the intravenous administration of contrast. All measurements were calculated based on NASCET criteria. The patient was scanned before and after the administration of 20 cc of intravenous Magnevist COMPARISON STUDY: None. FINDINGS: The aortic arch and proximal great vessels are widely patent. There is no significant stenosis, occlusion, or dissection identified within the bilateral common carotid, or internal carotid arteries. There is a probable left vertebral artery origin stenosis. IMPRESSION: 1. No evidence of hemodynamically significant carotid stenosis 2. Suspected left vertebral artery origin stenosis Electronically signed by: Rao Cancino M.D. 11/18/2016 9:36 PM Dictated Date/Time: 11/18/2016 9:33 PM
--- NOTE | 2016-11-18 21:42 | DIAGNOSTIC IMAGING REPORT ---
MRI OF THE BRAIN WITHOUT AND WITH IV CONTRAST CLINICAL HISTORY: Transient global amnesia COMPARISON STUDY: No previous studies for comparison. TECHNIQUE: MRI of the brain was performed from the vertex to the skull base utilizing various T1 and T2 weighted sequences. Following the IV administration of 20 mL of Magnevist contrast, additional enhanced images were obtained. FINDINGS: Sagittal T1, axial diffusion, proton density and T2 weighted axial, coronal FLAIR, and pre and post axial T1-weighted images were acquired. These were supplemented with post gadolinium coronal T1 weighted images. No intra or extra-axial mass lesions are visualized. Axial diffusion-weighted images reveal no evidence of acute or subacute infarction. There is no evidence of ventricular dilatation. Proton density T2-weighted and FLAIR images reveal no significant intraparenchymal signal abnormalities. There are no abnormal flow voids. There is no evidence of pathologic enhancement. There are minor foci of increased T2 signal within the mastoids likely inflammatory IMPRESSION: 1. No acute intracranial findings 2. No evidence of acute or subacute infarction 3. No evidence of intracranial mass. Electronically signed by: Rao Cancino M.D. 11/18/2016 9:40 PM Dictated Date/Time: 11/18/2016 9:38 PM
[2016-11-18] MEDS ORDERED: MAGNEVIST IV PRN (21:45)
[2016-11-19] VITALS (14 sets, daily range): BP systolic 120–148; BP diastolic 71–89; PULSE 58–71; TEMP 36.6–36.9; O2SAT 93–99
[2016-11-19 07:50] LABS: PARTIAL THROMBOPLASTIN RATIO 1.7
[2016-11-19] MEDS: NSS + 20MEQ KCL 1000ML 1,000 ML IV SCH (08:02)
[2016-11-19] MEDS: DOCUSATE SODIUM 100 MG CAP PO SCH ×2 (08:03→20:54)
[2016-11-19] MEDS: ASPIRIN 81 MG ECTAB PO SCH ×2 (08:03→08:25)
[2016-11-19] MEDS: PANTOprazole SOD 40 MG TAB PO SCH ×2 (08:03→08:25)
[2016-11-19] MEDS: LOSARTAN/HCTZ 50-12.5 EA TAB PO SCH ×2 (08:03→08:25)
[2016-11-19] MEDS: FLUTICASONE PROPIONATE NA SPR 16 GM BTL SCH (08:03)
[2016-11-19] MEDS: HEPARIN 25,000 UNIT/500ML D5W 500 ML IV PRN (08:35)
[2016-11-19] MEDS ORDERED: HEPARIN IV BOLUS 2,000 UNIT in SYRINGE 0 ML IV ONE (08:45)
[2016-11-19] MEDS ORDERED: NiCARDipine HCL INJ 2.5 MG/ML 10 ML AMP ONE (12:03)
[2016-11-19] MEDS ORDERED: HEPARIN SOD (PORCINE) 1000 UNIT/ML 10 ML VIAL ONE (12:03)
[2016-11-19] MEDS ORDERED: FENTANYL CITRATE INJ 50 MCG/1 ML 2 ML VIAL ONE (12:04)
[2016-11-19] MEDS ORDERED: MIDAZOLAM HCL 1 MG/ML 2ML VIAL ONE (12:04)
[2016-11-19] MEDS ORDERED: NITROGLYCERIN/D5W 100MCG/ML 20ML SYR ONE (12:05)
--- NOTE | 2016-11-19 13:18 | ELECTROENCEPHALOGRAPH REPORT ---
REQUESTING: Korin Andrade PA-C. 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 EEG DIAGNOSIS: Essentially normal during wakefulness. DESCRIPTION OF TRACING: This EEG was done as a bedside tracing and is of good technical quality. Later on in the tracing in there is some O1 electrode artifacts, but these did not interfere with interpretation. Photic stimulation was performed. Drowsiness and light sleep were not obtained. During wakefulness, there is evidence for a normal background rhythm in the alpha range of up to 11 Hz of maximum frequency and 30 microvolts of maximum amplitude. This is maximum in posterior head regions and bilaterally symmetrical. Polymorphic mid frequency theta activity is seen over all head regions without clear focal or regional predominance. Anterior head region maximum bilaterally symmetrical low voltage fast activity in the beta range is present. Photic stimulation provoked some modest driving response without a photomyogenic or photoparoxysmal component. At no time during the waking tracing is there evidence for potentially epileptogenic activity in the form of polyspike or spike wave bursts, focal sharp waves or focal spikes. INTERPRETATION: This EEG is essentially normal during wakefulness without evidence for focal or generalized encephalopathy and without evidence for potentially epileptogenic activity. MTDD
[2016-11-19] MEDS ORDERED: SODIUM CHLORIDE 0.9% 1000ML 250 ML IV PRN (13:28)
[2016-11-19] MEDS ORDERED: SODIUM CHLORIDE 0.9% 1000ML 1,000 ML IV SCH (13:28)
--- NOTE | 2016-11-19 13:28 | Cardiac Catheterization ---
Procedure Note Procedure Date Nov 19, 2016. Pre-Procedure Diagnosis Non STEMI AUC Score 9 Post-Procedure Diagnosis Normal Coronary Arteries Procedure(s) Performed Coronary Angiography Pharmacy Technology Instructor Dr. Oliva Blueprinter(s) None Estimated Blood Loss None Medication(s) Versed, Lidocaine 1% Summary of Findings Normal Coronaries Hemodynamics Rest Ao: 181/79 Final Ao: 186/84 LV: 190/10 Recommendations Medical therapy and/or Counseling Specimens None Radiation Exposure (mGy) 2134 Contrast (mls) 196 Fluids (cc crystalloids) 100 Disposition Giver Holding/Recovery ACC Data Cardiac Status Clinical evaluation leading to the procedure CAD Presntation: Unstable angina, Non STEMI Anginal Classification: CCS II Heart Failure: No Cardiogenic Shock w/in 24Hrs: No Cardiac Arrest w/in 24Hrs: No Imaging studies past 6 months: Yes Stress studies past 6 months: No Standard Exercise Stress Test: No Stress Echocardiogram: No Stress Testing w/SPECT MPI: No Cardiac CTA: No Coronary Anatomy Dominant: Right Left Main (% Stenosis): Normal LAD (% Stenosis): Normal Circumflex (% Stenosis): Normal RCA (% Stenosis): Normal Diagnostic Status: Urgent Closure Device Percutaneous Entry Location: Radial Closure Device: Radial Band Recommendations: Medical therapy and/or Counseling
[2016-11-19] MEDS ORDERED: ONDANSETRON INJ 2 MG/ML 2 ML VIAL IV PRN (13:30)
[2016-11-19] MEDS ORDERED: ACETAMINOPHEN 325 MG TAB PO PRN (13:30)
[2016-11-19] MEDS ORDERED: ATROPINE SULFATE 0.1 MG/ML 5ML SYR IV PRN (13:30)
[2016-11-19] MEDS ORDERED: NURSING VERBAL MED ORDER ONE (14:00)
[2016-11-19 15:03] LABS: PARTIAL THROMBOPLASTIN RATIO 1.5
--- NOTE | 2016-11-19 15:15 | CARDIAC CATH REPORT ---
PROCEDURE: Coronary angiography. HISTORY: The patient is a 66-year-old female who presented with a non-STEMI. PROCEDURE SUMMARY: The patient was seen and evaluated in the holding area of the gold leaf laborer. After informed consent was obtained, the patient had a Barbeau maneuver performed and then was prepped and draped in the usual manner for a right transradial approach. Preformed 5-Cambodian diagnostic catheters were utilized for the coronary angiograms. Following the procedure, the patient was returned to her room in stable condition. CORONARY ANGIOGRAPHY: Selective injections of the left coronary artery revealed the left main trunk to be smooth in appearance, widely patent, and within normal limits. The LAD system is smooth in appearance, widely patent, and within normal limits including a large first ramus or diagonal branch. The left circumflex artery consists principally of a large lateral marginal branch and a second smaller marginal branch posteriorly. The left circumflex system is smooth in appearance, widely patent, and within normal limits. Selective injections of the right coronary artery reveal it to be large and hyperdominant. The right coronary artery is smooth in appearance, widely patent, and within normal limits. SUMMARY: The patient has normal coronary arteries. RECOMMENDATIONS: Clinical correlation and medical management. ALICE
--- NOTE | 2016-11-19 15:54 | Neurology Progress Notes ---
Neurology Progress Note Date of Service Nov 19, 2016. Dolores Rodriguez is a 66-year-old white female with significant past medical history including hypertension, esophageal reflux, hyperlipidemia, and also generalized osteoarthritis, apparently was brought into the Emergency Room at around 10:40 this morning with complaints of waxing and waning chest pain for 6 hours. She was worried she had a heart attack. Her blood pressure was elevated to 200/109. She was given nitro paste to control her blood pressure. 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 She did have a headache after the event. She had a similar episode in 2005 which was not as protracted. She also mentioned that she had a concussion in 1994. she states she has no history of seizures but does have a PMH of headaches. She had her heart catheterization today and waiting for the weed control inspector to come to talk to her. She states the amnesia state seems to be past and she is wondering when she can go home. discussed no stroke or lesions on the MRI and EEG was normal. Her and regional construction manager are in the room today. Objective Date Time Temp Pulse Resp B/P Pulse Ox O2 Delivery O2 Flow Rate FiO2 11/19/16 15:15 36.8 71 16 126/71 98 Room Air 11/19/16 14:45 36.9 65 16 140/78 97 Room Air 11/19/16 14:15 36.9 58 16 143/89 95 Room Air 11/19/16 14:00 36.8 18 137/89 96 Room Air 11/19/16 13:45 36.8 18 144/80 98 Room Air 11/19/16 13:30 66 16 137/88 96 Room Air 11/19/16 13:20 Room Air 11/19/16 13:15 63 16 127/73 95 Room Air 11/19/16 12:00 Room Air 11/19/16 11:18 36.8 61 20 146/88 95 Room Air 11/19/16 09:31 Room Air 11/19/16 08:00 Room Air 11/19/16 07:51 36.8 65 16 148/74 96 11/19/16 04:02 Room Air 11/19/16 03:54 36.7 62 18 128/81 97 Room Air 11/19/16 02:36 36.6 66 20 136/77 97 Room Air 11/19/16 00:02 Room Air 11/18/16 23:17 36.6 66 20 136/77 97 Room Air 11/18/16 20:04 Room Air 11/18/16 19:28 36.6 68 15 138/80 95 Room Air 11/18/16 16:00 Room Air Last 24 Hours Test 11/18/16 19:35 11/19/16 07:06 11/19/16 14:15 Activated Partial Thromboplast Time 49.5 SECONDS 45.3 SECONDS 38.4 SECONDS Partial Thromboplastin Ratio 1.9 1.7 1.5 Imaging: MRA head-There is no evidence of major intracranial branch occlusion. There is no evidence of cranial stenosis. 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 This is not felt to be of clinical significance. MRA neck- FINDINGS: The aortic arch and proximal great vessels are widely patent. There is no significant stenosis, occlusion, or dissection identified within the bilateral common carotid, or internal carotid arteries. There is a probable left vertebral artery origin stenosis. MRI brain with and without contrast- No acute intracranial findings No evidence of acute or subacute infarction No evidence of intracranial mass. Exam: Physical Exam: Constitutional: appearance nourished, healthy and normal Ears, Nose, Mouth and Throat: mucous membranes moist, no injection and skin normal, eyes normal Cardiovascular: normal S-1 and S-2 and regular rate and rhythm Respiratory: clear to auscultation (CTA) and no rales, rhonchi or wheeze Musculoskeletal: no peripheral edema and good distal pulses Skin: no stigmata of neurocutaneous disease noted and normal and intact Eyes: extraocular muscles intact (EOMI) and pupils equal, round and reactive to light (PERRL) NEUROLOGIC EXAMINATION: Mental status: Alert and interactive Oriented to full date and location Oriented to person Speech fluent with no evidence of aphasia Gait/Stance: lying in bed Current Inpatient Medications Medications (Trade) Dose Ordered Sig/Alexander Route Start Time Stop Time Status Last Admin Dose Admin Ioversol (Optiray 320) 125 ml UD PRN IV 11/17/16 13:30 11/21/16 13:29 Nitroglycerin (Nitrostat Tab) 0.4 mg UD PRN SL 11/17/16 14:00 12/17/16 13:59 Aspirin (Ecotrin Tab) 81 mg QAM PO 11/18/16 09:00 12/18/16 08:59 11/19/16 08:25 81 MG Atenolol (Tenormin Tab) 25 mg HS PO 11/17/16 21:00 12/17/16 20:59 11/18/16 22:06 25 MG Fluticasone Propionate (Flonase Nasal [place]) 2 sprays DAILY NA 11/18/16 09:00 12/18/16 08:59 11/19/16 08:03 2 SPRAYS HCTZ/Losartan Potassium (Hyzaar 50-12.5 Tab) 1 tab QAM PO 11/18/16 09:00 12/18/16 08:59 11/19/16 08:25 1 TAB Pantoprazole Sodium (Protonix Tab) 40 mg QAM PO 11/18/16 09:00 12/18/16 08:59 11/19/16 08:25 40 MG Miscellaneous (Iv Fluids Completed) 1 ea PRN PRN N/A 11/17/16 14:45 11/17/17 14:44 Docusate Sodium (coLACE CAP) 100 mg DAILY PO 11/19/16 09:00 12/19/16 08:59 Diphenhydramine HCl (Benadryl Cap) 25 mg Q6H PRN PO 11/18/16 21:15 12/18/16 21:14 11/18/16 23:23 25 MG Gadopentetate Dimeglumine 20 ml 20 ml UD PRN IV 11/18/16 21:45 11/22/16 21:44 Sodium Chloride (Nss 1000ml) 1,000 ml @ 75 mls/hr [id number] IV 11/19/16 13:28 12/19/16 13:27 Acetaminophen 650 mg 650 mg Q4H PRN PO 11/19/16 13:30 12/19/16 13:29 Sodium Chloride (Nss 1000ml) 250 ml @ 999 mls/hr Q16M PRN IV 11/19/16 13:28 12/19/16 13:27 Atropine Sulfate (Atropine Sulfate 0.1MG/Ml Inj) 0.6 mg PRN PRN IV 11/19/16 13:30 12/19/16 13:29 Ondansetron HCl (Zofran Inj) 4 mg Q6H PRN IV 11/19/16 13:30 12/19/16 13:29 Impression 66 year old female transient global amnesia Plan 1. cardiac work up in progress-cardiac catheter normal 2. can not exclude a complex migraine syndrome 3. MRI brain with and without contrast- no evidence of stroke or lesions 4. EEG -r/o seizure- report normal 5. MRA head and neck - r/o any vascular issues in head and neck -no clinically significant findings but recommend PCP repeat MRA head in 1 year 6. recommend starting aspirin 81 mg daily if no contraindications. I have seen and discussed above patient with Dr Delta Garsai, neurology
--- NOTE | 2016-11-19 17:48 | Progress Note ---
Internal Med Progress Note Date of Service: Nov 19, 2016. Provider Documentation: SUBJECTIVE: The patient was seen and examined Denies any chest pain,sob and or palpitation Still can't remember the symptoms before coming to hospital Has had similar episode of amnesia 2 years ago Cardiac cath today OBJECTIVE: Vital Signs-as noted below Exam: General-No distress Eyes-normal ENT-normal Neck-supple Lungs-clear to ausucltate bilaterally Heart-regular,no murmur Abdomen-Benign,no masses,bowel sound present Extremities-No edema Neuro-AAOx3 Lab data as noted below. ASSESSMENT & PLAN: Hypertensive urgency with metabolic encephalopathy. Transient Global Amnesia -with another episode 2 years ago Continue current medications BP is controlled Neurology evaluation-appreciate input Neurology W/U -MRI of the Head ,MRA of the Head and Neck,EEG -unremarkable Could be part of complex Migraine Type II NSTEMI Inferior Ischemic EKG this Morning Troponin bumped up significantly Continue Heparin,Aspirin,BB Cardiology consult-appreciate input A short runs of AF Cardiac cath in AM -Normal coronaries Esophageal reflux. Continue with current medication. Hyperlipidemia, has not been taking any medications. Will check a lipid level-Total Cholesterol 224 Osteoarthritis has been on diclofenac, will hold this medicine while in the hospital. Deep venous thrombosis prophylaxis - heparin. Gastrointestinal prophylaxis with proton pump inhibitor. Code status - she will be a full code. Disposition Likely discharge tomorrow Vital Signs: Date Time Temp Pulse Resp B/P Pulse Ox O2 Delivery O2 Flow Rate FiO2 11/19/16 17:15 36.8 68 16 126/76 99 Room Air 11/19/16 16:15 36.8 71 16 120/78 98 Room Air 11/19/16 16:00 Room Air 11/19/16 15:15 36.8 71 16 126/71 98 Room Air 11/19/16 14:45 36.9 65 16 140/78 97 Room Air 11/19/16 14:15 36.9 58 16 143/89 95 Room Air 11/19/16 14:00 36.8 18 137/89 96 Room Air 11/19/16 13:45 36.8 18 144/80 98 Room Air 11/19/16 13:30 66 16 137/88 96 Room Air 11/19/16 13:20 Room Air 11/19/16 13:15 63 16 127/73 95 Room Air 11/19/16 12:00 Room Air 11/19/16 11:18 36.8 61 20 146/88 95 Room Air 11/19/16 09:31 Room Air 11/19/16 08:00 Room Air 11/19/16 07:51 36.8 65 16 148/74 96 11/19/16 04:02 Room Air 11/19/16 03:54 36.7 62 18 128/81 97 Room Air 11/19/16 02:36 36.6 66 20 136/77 97 Room Air 11/19/16 00:02 Room Air 11/18/16 23:17 36.6 66 20 136/77 97 Room Air 11/18/16 20:04 Room Air 11/18/16 19:28 36.6 68 15 138/80 95 Room Air Lab Results: Results Past 24 Hours Test 11/18/16 19:35 11/19/16 07:06 11/19/16 14:15 Range/Units Activated Partial Thromboplast Time 49.5 45.3 38.4 21.0-31.0 SECONDS Partial Thromboplastin Ratio 1.9 1.7 1.5
--- NOTE | 2016-11-19 23:31 | PROGRESS NOTE ---
DATE: 11/19/2016 SUBJECTIVE: I saw Michael today. She looks well. Her headaches gone. Studies showed nothing on the MRI that would explain the transient global amnesia and the intracranial MRA shows only a small 1 mm aneurysm on left carotid siphon, nothing of significance at this point but something is going to need reimaging in about a year with another MRA. Her EEG and more importantly is normal, so we do not have evidence for seizure, stroke and I suspect this was at least part of a migraine syndrome. Catheter study showed no significant coronary artery disease, she did not need a stent, so at this point all I would suggest is she be placed on 1 baby aspirin per day. She probably does not need a neurologic follow up on a regular basis. We can take a look at her in 6 months to see how she is doing, and whether she has had more of these events and then schedule an MRA at that point for 6 months in advance. At this point, I think we are going to sign off the case unless her other neurologic issues that develop between now and her time of discharge. ALICE
[2016-11-20 03:40] VITALS: BP 120/67; PULSE 61; TEMP 36.7; O2SAT 94
[2016-11-20 06:46] LABS: HEMATOCRIT 41.7 % (37-47); MEAN CELL VOLUME 90.7 fL (80-100); MEAN CORPUSCULAR HEMOGLOBIN 30.4 pg (25-34); MEAN CORPUSCULAR HGB CONC 33.6 g/dl (32-36); MEAN PLATELET VOLUME 9.4 fL (7.4-10.4); PLATELET COUNT 219 K/uL (130-400)
[2016-11-20 07:15] LABS: BUN/CREATININE RATIO 8.2 (10-20); CALCIUM 9.2 mg/dl (8.5-10.1); CREATININE 1.1 mg/dl (0.60-1.20); MAGNESIUM 2.3 mg/dl (1.8-2.4); POTASSIUM 4.4 mmol/L (3.5-5.1)
[2016-11-20 07:28] VITALS: BP 127/83; PULSE 68; TEMP 37; O2SAT 95
[2016-11-20 07:59] VITALS: O2SAT 95
[2016-11-20] MEDS: LOSARTAN/HCTZ 50-12.5 EA TAB PO SCH (09:08)
[2016-11-20] MEDS: PANTOprazole SOD 40 MG TAB PO SCH (09:08)
[2016-11-20] MEDS: FLUTICASONE PROPIONATE NA SPR 16 GM BTL SCH (09:09)
[2016-11-20] MEDS: ASPIRIN 81 MG ECTAB PO SCH (09:09)
[2016-11-20 11:02] VITALS: BP 121/70; PULSE 68; TEMP 36.7; O2SAT 96
--- NOTE | 2016-11-20 12:58 | Progress Note ---
Internal Med Progress Note Date of Service: Nov 20, 2016. Provider Documentation: SUBJECTIVE: The patient was seen and examined Denies any chest pain,sob and or palpitation Still can't remember the symptoms before coming to hospital Has had similar episode of amnesia 2 years ago S/P Cardiac cath -normal Coronaries No more amnesia OBJECTIVE: Vital Signs-as noted below Exam: General-No distress Eyes-normal ENT-normal Neck-supple Lungs-clear to ausucltate bilaterally Heart-regular,no murmur Abdomen-Benign,no masses,bowel sound present Extremities-No edema Neuro-AAOx3 Lab data as noted below. ASSESSMENT & PLAN: Hypertensive urgency with metabolic encephalopathy. 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 Continue with current medication. Hyperlipidemia, has not been taking any medications. Will check a lipid level-Total Cholesterol 224 Osteoarthritis has been on diclofenac, will hold this medicine while in the hospital. Deep venous thrombosis prophylaxis - heparin. Gastrointestinal prophylaxis with proton pump inhibitor. Code status - she will be a full code. Disposition Discharge today Vital Signs: Date Time Temp Pulse Resp B/P Pulse Ox O2 Delivery O2 Flow Rate FiO2 11/20/16 12:00 Room Air 11/20/16 11:02 36.7 68 16 121/70 96 Room Air 11/20/16 08:00 Room Air 11/20/16 07:59 95 Room Air 11/20/16 07:28 37.0 68 16 127/83 95 Room Air 11/20/16 04:00 Room Air 11/20/16 03:40 36.7 61 15 120/67 94 Room Air 11/19/16 23:59 Room Air 11/19/16 23:52 36.7 63 16 120/72 93 Room Air 11/19/16 20:00 Room Air 11/19/16 19:15 36.6 66 19 135/84 95 Room Air 11/19/16 18:15 36.8 67 18 126/78 98 Room Air 11/19/16 17:15 36.8 68 16 126/76 99 Room Air 11/19/16 16:15 36.8 71 16 120/78 98 Room Air 11/19/16 16:00 Room Air 11/19/16 15:15 36.8 71 16 126/71 98 Room Air 11/19/16 14:45 36.9 65 16 140/78 97 Room Air 11/19/16 14:15 36.9 58 16 143/89 95 Room Air 11/19/16 14:00 36.8 18 137/89 96 Room Air 11/19/16 13:45 36.8 18 144/80 98 Room Air 11/19/16 13:30 66 16 137/88 96 Room Air 11/19/16 13:20 Room Air 11/19/16 13:15 63 16 127/73 95 Room Air Lab Results: Results Past 24 Hours Test 11/19/16 14:15 11/20/16 06:36 Range/Units Activated Partial Thromboplast Time 38.4 21.0-31.0 SECONDS Partial Thromboplastin Ratio 1.5 White Blood Count 5.40 4.8-10.8 K/uL Red Blood Count 4.60 4.2-5.4 M/uL Hemoglobin 14.0 12.0-16.0 g/dL Hematocrit 41.7 37-47 % Mean Corpuscular Volume 90.7 80-100 fL Mean Corpuscular Hemoglobin 30.4 25-34 pg Mean Corpuscular Hemoglobin Concent 33.6 32-36 g/dl RDW Standard Deviation 44.0 36.4-46.3 fL RDW Coefficient of Variation 13.3 11.5-14.5 % Platelet Count 219 130-400 K/uL Mean Platelet Volume 9.4 7.4-10.4 fL Sodium Level 142 136-145 mmol/L Potassium Level 4.4 3.5-5.1 mmol/L Chloride Level 107 98-107 mmol/L Carbon Dioxide Level 27 21-32 mmol/L Anion Gap 8.0 3-11 mmol/L Blood Urea Nitrogen 9 7-18 mg/dl Creatinine 1.10 0.60-1.20 mg/dl Est Creatinine Clear Calc Drug Dose 46.5 ml/min Estimated GFR () 61.0 Estimated GFR (Non- 52.6 BUN/Creatinine Ratio 8.2 10-20 Random Glucose 89 70-99 mg/dl Calcium Level 9.2 8.5-10.1 mg/dl Magnesium Level 2.3 1.8-2.4 mg/dl
--- NOTE | 2016-11-20 13:29 | Cardiology Follow-Up ---
Subjective Subjective Date of Service: Nov 20, 2016. Pt evaluation today including: conversation w/ patient, physical exam, chart review, lab review, review of studies, review of inpatient medication list Additional Details: Pt seen and examined, states that she feels fine, has a number of questions. Denies cp, sob, palpitations, lightheadedness or dizziness. Tele reviewed: sinus rhythm without arrhythmia or significant ectopy. Problem List Medical Problems: (1) NSTEMI (non-ST elevated myocardial infarction) Status: Acute Review of Systems Respiratory: No cough, No dyspnea at rest, No dyspnea on exertion, No hemoptysis, No problem reported, No see HPI, No shortness of breath, No sputum, No wheezing Cardiac: No PND, No chest pain, No claudication, No edema, No orthopnea, No palpitations, No problem reported, No see HPI Objective Vital Signs Last Vital Signs Documentation Date Time Temp Pulse Resp B/P Pulse Ox O2 Delivery O2 Flow Rate FiO2 11/20/16 12:00 Room Air 11/20/16 11:02 36.7 68 16 121/70 96 Physical Exam: General Appearance: WD/WN, no apparent distress Eyes: bilateral eyes EOMI, bilateral eyes PERRL, bilateral eyes normal inspection ENT: normal ENT inspection, hearing grossly normal, pharynx normal Neck: supple, no adenopathy, thyroid normal, no JVD, no carotid bruits, trachea midline Respiratory/Chest: chest non-tender, lungs clear, normal breath sounds, no respiratory distress, no accessory muscle use Cardiovascular: regular rate, rhythm, no edema, no gallop, no JVD, no murmur Abdomen: normal bowel sounds, non tender, soft, no organomegaly, no pulsatile mass Extremities: normal range of motion, non-tender, normal inspection, no pedal edema, no calf tenderness Neurologic/Psychiatric: powder core tester II-XII nml as tested, no motor/sensory deficits, alert, normal mood/affect, oriented x 3 Skin: normal color, warm/dry, no rash Lymphatic: no adenopathy Assessment and Plan 1. troponin elevation no other sign of active ischemia no wall motion abnormality on echo no ischemic EKG changes secondary to hypertensive urgency cardiac cath shows clean coronaries 2. Hypertension controlled now unclear why significantly elevated on 11/17 will perform secondary work up plasma metanephrines pending renal artery ultrasound negative cont outpatient meds cont to follow with pcp no cardiac follow up as an outpatient indicated f/u with pcp ok to d/c to home
[2016-11-20] MEDS ORDERED: ASPEC81 PO (15:39)
[2016-11-20 15:41] VITALS: BP 169/93; PULSE 76; TEMP 36.6; O2SAT 97
--- NOTE | 2016-11-20 15:41 | Discharge Instructions ---
Discharge Instructions Admission Reason for Admission: Hypertension Urgency Discharge Discharge Diagnosis / Problem: Hypertensive Urgency,Transient Global Amnesia, NSTEMI ,Clean Coronaries Discharge Goals Goal(s): Prevent Disease Progression Activity Recommendations Activity Limitations: resume your previous activity . Instructions / Follow-Up Instructions / Follow-Up Dr Johanna Garcia on 11/26/16 at 10:30AM Current Hospital Diet Patient's current hospital diet: AHA Diet (Heart Healthy) Discharge Diet Recommended Diet: AHA Diet (Heart Healthy) Pending Studies Studies pending at discharge: no Laboratory Results Lipid Panel Test 11/18/16 06:25 Range/Units Triglycerides Level 136 0-150 mg/dl Cholesterol Level 214 H 0-200 mg/dl HDL Cholesterol 70 mg/dl Cholesterol/HDL Ratio 3.1 LDL Cholesterol, Calculated 117 mg/dl Medical Emergencies . Who to Call and When: Medical Emergencies: If at any time you feel your situation is an emergency, please call 911 immediately. . Non-Emergent Contact Non-Emergency issues call your: Primary Care Provider . Past History Medical & Surgical History: (1) Transient global amnesia (2) NSTEMI (non-ST elevated myocardial infarction) (3) Chest pain (4) Hypertensive urgency (5) Lactose intolerance (6) GERD (gastroesophageal reflux disease) (7) HTN (hypertension) . "Provider Documentation" section prepared by Latisha Carpenter. VTE Core Measure Inpt VTE Proph given/why not?: Unfractionated heparin SQ
[2016-11-20 15:56] VITALS: BP 138/80; PULSE 76; TEMP 36.6; O2SAT 98
--- NOTE | 2016-11-21 08:12 | Discharge Summary ---
Discharge Summary Admission Date: Nov 17, 2016 at 14:06 Discharge Date: Nov 20, 2016 Discharge Disposition: Home Principal Diagnosis: Hypertensive Urgency,Transient Global Amnesia,NSTEMI ,Clean Coronaries Secondary Diagnoses/Problems: Please see H&P Procedures: Cardiac Cath Consultations: Cardiology Medication Reconciliation New Medications: Aspirin (Aspirin EC Low Dose) 81 Mg Ectab 81 MG PO QAM for 30 Days, #30 Continued Medications: Atenolol (Tenormin) 25 Mg Tab 25 MG PO HS, TAB Diclofenac (Voltaren) 75 Mg Tabcr 75 MG PO HS, TAB WITH FOOD Fluticasone Propionate (Nasal) (Flonase Allergy Relief) 50 Mcg/Act Spr 1-2 SPRAYS PO DAILY Hctz/Losartan (Hyzaar 25MG/100MG) 1 Ea Tab 1 TAB PO QAM, TAB Omeprazole (Prilosec) 20 Mg Capcr 20 MG PO DAILY, CAP Admission Information HPI (per Admitting provider): DATE OF ADMISSION: 11/17/2016 PRIMARY CARE PHYSICIAN: Dr. Garcia CHIEF COMPLAINT: Waxing and waning chest pain beginning at around 6 hours prior to coming to the hospital. HISTORY OF PRESENT COMPLAINT: She is a 66-year-old white female with significant past medical history including hypertension, esophageal reflux, hyperlipidemia, and also generalized osteoarthritis, apparently was brought into the Emergency Room at around 10:40 this morning with complaints of waxing and waning chest pain, 6 hours before coming to the Emergency Room. The initial history was taken by the ER physician. At that time, the patient complained to have pressure in the center of the chest and sometimes pain has been going down to the left arm and left elbow. She was feeling a little better in the Emergency Room and she was worried about having a heart attack as well. She was noted to have a very high blood pressure of systolic of more than 200 and diastolic 109. At that point, she was given nitro paste to control the blood pressure and chest pain. Following that, the patient had an episode of confusion and during my time of taking history, she was not able to give any account of her problem. She told me that she cannot remember anything and she was asking why she is here, what is happening with her, these kind of questions, but she was not in any distress. She underwent a CTA to rule out any dissection and or clot and also CT of the head which were unremarkable. Her EKG unremarkable. Troponin was slightly elevated to 0.33 and her blood pressure came down to 150 range, but given her chest pain episode and also an episode of confusion and high blood pressure, she was admitted to the telemetry unit for continuation of medical care. PAST MEDICAL HISTORY: Significant for hypertension, hyperlipidemia, esophageal reflux, osteoarthritis, and history of impaired glucose tolerance. PAST SURGICAL HISTORY: Hysterectomy in 1998 and she did have upper and lower endoscopies. FAMILY HISTORY: She is . Her brother has prostate cancer and father had prostate cancer and mother had pancreatic cancer. SOCIAL HISTORY: She is . She lives with her . She does not smoke and does not drink and she has been reasonably ambulant. ALLERGIES: LISINOPRIL. MEDICATIONS: She has been on diclofenac 75 mg at night, atenolol 25 mg at night, Flonase nasal spray 2 sprays in each nostril as directed, Hyzaar 25 mg daily, omeprazole 20 mg daily. REVIEW OF SYSTEMS: CENTRAL NERVOUS SYSTEM: No headache, no blurred vision, no numbness or tingling in the extremities. RESPIRATORY: No shortness of breath, no cough or phlegm. CARDIOVASCULAR: Did have some central chest pain with radiation to left arm and elbow. No palpitation. GASTROINTESTINAL: No abdominal pain, distention, nausea, vomiting. GENITOURINARY: No problem with urine and/or bowel habit. MUSCULOSKELETAL: No acute arthritis. GENERAL: No rash and she does not have any complaint with vision, ear problem or nose problem. PHYSICAL EXAMINATION: GENERAL: On examination in the Emergency Room, as mentioned in history of present complaint, she could not remember why was she in the Emergency Room, but she was not having any acute distress during my examination. VITAL SIGNS: Temperature 36.6, pulse of 73, blood pressure 177/88, saturation 97% on room air. HEENT: Unremarkable. NECK: Supple. No JVD, no bruit. CHEST: Clear to auscultate bilaterally. HEART: S1, S2 regular, no murmur. ABDOMEN: Soft, benign, nontender, no organomegaly. Bowel sounds present. EXTREMITIES: Negative for any Edema. MUSCULOSKELETAL SYSTEM: Did not show any acute arthritis involving any joint. CENTRAL NERVOUS SYSTEM: She was alert, awake. She was not oriented but no focal sensory and/or motor deficit appreciated. LABORATORY DATA: Noted today white count was 7.19, H\\T\\H 13.5/40.6 and platelet was 218. Sodium 141, potassium 3.6, chloride 103, carbon dioxide 28, BUN 14, creatinine 0.82, random glucose 110. LFTs unremarkable. CK was 134, MB 7.5. Troponin 0.329. Lipase of 265. PT/INR unremarkable. IMAGING DATA: Chest x-ray negative. CT of the head negative. CTA still pending. EKG was in sinus rhythm with sinus arrhythmia, partial right Bundle Branch block but no acute ST-T wave changes. Compared with EKG in the [employer] system, no significant change noted. IMPRESSION AND PLAN: 1. Hypertensive urgency with metabolic encephalopathy. The patient will be admitted to telemetry unit and she will be observed. Initial CAT scan negative. She does not have any neuro symptoms. We will maintain the blood pressure around systolic 150. 2. Chest pain, could be secondary to hypertensive urgency. She has a little bit of elevation of troponin. Will do serial cardiac enzymes, echo was done, no significant valvular and/or left ventricular disease. Cardiology consultation. She will be put on heparin, aspirin and beta mónica. 3. Esophageal reflux. Continue with current medication. 4. Hyperlipidemia, has not been taking any medications. Will check a lipid level and then put her on statin on discharge. 5. Osteoarthritis has been on diclofenac, will hold this medicine while in the hospital. 6. Deep venous thrombosis prophylaxis - heparin. 7. Gastrointestinal prophylaxis with proton pump inhibitor. 8. Code status - she will be a full code. In my clinical judgment, the beneficiary meets criteria as per CMS for 2-midnight stay in the hospital. Dictated: 11/17/16 1404 Transcribed: 11/17/16 4903 <Electronically signed by Latisha Carpenter M.D.> Signed: 11/17/16 0097 ES Latisha Carpenter M.D. Hospital Course Hypertensive urgency with metabolic encephalopathy. 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 Continue with current medication. Hyperlipidemia, has not been taking any medications. Will check a lipid level-Total Cholesterol 224 Osteoarthritis has been on diclofenac, will hold this medicine while in the hospital. Deep venous thrombosis prophylaxis - heparin. Gastrointestinal prophylaxis with proton pump inhibitor. Code status - she will be a full code. Disposition Discharge today Total time spent on discharge = 35 minutes This includes examination of the patient, discharge planning, medication reconciliation, and communication with other providers. Discharge Instructions Admission Reason for Admission: Hypertension Urgency Discharge Discharge Diagnosis / Problem: Hypertensive Urgency,Transient Global Amnesia, NSTEMI ,Clean Coronaries Discharge Goals Goal(s): Prevent Disease Progression Activity Recommendations Activity Limitations: resume your previous activity . Instructions / Follow-Up Instructions / Follow-Up Dr Johanna Garcia on 11/26/16 at 10:30AM Current Hospital Diet Patient's current hospital diet: AHA Diet (Heart Healthy) Discharge Diet Recommended Diet: AHA Diet (Heart Healthy) Pending Studies Studies pending at discharge: no Laboratory Results Lipid Panel Test 11/18/16 06:25 Range/Units Triglycerides Level 136 0-150 mg/dl Cholesterol Level 214 H 0-200 mg/dl HDL Cholesterol 70 mg/dl Cholesterol/HDL Ratio 3.1 LDL Cholesterol, Calculated 117 mg/dl Medical Emergencies . Who to Call and When: Medical Emergencies: If at any time you feel your situation is an emergency, please call 911 immediately. . Non-Emergent Contact Non-Emergency issues call your: Primary Care Provider . Past History Medical & Surgical History: (1) Transient global amnesia (2) NSTEMI (non-ST elevated myocardial infarction) (3) Chest pain (4) Hypertensive urgency (5) Lactose intolerance (6) GERD (gastroesophageal reflux disease) (7) HTN (hypertension) . "Provider Documentation" section prepared by Latisha Carpenter. VTE Core Measure Inpt VTE Proph given/why not?: Unfractionated heparin SQ <Electronically signed by Latisha Carpenter M.D.> Signed: 11/20/16 8360 Additional Copies To Yeny Garcia M.D.
[2016-11-21 12:38] LABS: NORMETANEPHRINE PLASMA 74 pg/mL (<=148); TOTAL METANEPHRINE PLASMA 74 pg/mL (<=205)
== END 2016-11-20 16:20 | disposition home or self-care (01) | DRG 286 ==
LOC: ENRESERVDT → ENRESERVTM → C.EDB 10:32 → C.2T 14:06 → EDBEDREQ 14:13
PROVIDERS: ADMIT Internal Medicine; ATTEND Internal Medicine
PROC: B2111ZZ Fluoroscopy of Multiple Coronary Arteries using Low Osmolar Contrast (ICD-10-PCS; 2016-11-19)
PROC: 4A023N7 Measurement of Cardiac Sampling and Pressure, Left Heart, Percutaneous Approach (ICD-10-PCS; principal; 2016-11-19 13:17)
DX: I16.0 Hypertensive urgency (principal); G93.41 Metabolic encephalopathy; G45.4 Transient global amnesia; K21.9 Gastro-esophageal reflux disease without esophagitis; E78.5 Hyperlipidemia, unspecified; M19.90 Unspecified osteoarthritis, unspecified site; G43.909 Migraine, unspecified, not intractable, without status migrainosus; Z80.42 Family history of malignant neoplasm of prostate; I25.2 Old myocardial infarction